=== PATIENT | male | born 1980 | race Caucasian/White ===

== ENCOUNTER 2022-05-01 14:09 | Emergency (ER) | payer SELFPAY ==
[~2022-05-01] VITALS: Ht 177.8 cm; Wt 124.7 kg
[2022-05-01] MEDS ORDERED: KETOROLAC TROMETHAMINE 30 MG/ML VIAL IM STA (14:47)
[2022-05-01] MEDS ORDERED: CEFTRIAXONE 1 GM VIAL IM ONE (15:00)
[2022-05-01] MEDS ORDERED: AUGMENTIN 500-1 EACH PO (15:13)
[2022-05-01] MEDS ORDERED: MELOXICAM7.5 MG PO (15:13)
== END 2022-05-01 15:48 | disposition home or self-care (01) ==
LOC: FSED 14:38
DX: K08.89 Other specified disorders of teeth and supporting structures (principal)
CPT/HCPCS: 99282; J0696; J1885